=== PATIENT | female | born 1975 | race Caucasian/White ===

== ENCOUNTER 2021-04-11 17:25 | Observation (INO) ==
[2021-04-11] MEDS ORDERED: ONDANSETRON 4 MG/2 ML VIAL IV STA (18:21)
[2021-04-11] MEDS ORDERED: ASPIRIN 325 MG TABLET PO STA (18:21)
[2021-04-11 18:29] LABS: Basophils # 0.1 10*3/uL (0.0-0.2); Basophils % 1.6 % (0.0-0.8); Eosinophils # 0.1 10*3/uL (0.0-0.87); Hematocrit 39.7 VOL% (35.7-47.0); Hemoglobin 12.8 GM/DL (12.0-16.0); Immature Granulocytes % 0.5 %; Immature Granulocytes Absolute 0.03 #; Lymphocytes # 1.5 10*3/uL (1.4-4.0); Lymphocytes % 22.5 % (21.3-54.2); Mean Corpuscular HGB Conc 32.2 GM/DL (32-36); Mean Corpuscular Volume 95.7 FL (87-102); Mean Platelet Volume 10.5 FL (9.6-12.0); Monocytes % 9.3 % (1.7-12.7); Neutrophils % 64.1 % (38.7-73.9); Platelet Count 275 T/CUMM (130-400); Red Blood Count 4.15 MC/CUMM (3.8-5.5); White Blood Count 6.5 T/CUMM (4-12)
[2021-04-11 19:24] LABS: Alanine Aminotransferase 40 U/L (13-56); Albumin 3.5 G/DL (3.4-5.0); Alkaline Phosphatase 77 U/L (45-117); Aspartate Amino Transferase 28 U/L (0-37); Bilirubin,Total < 0.39 MG/DL (0.2-1.0); Blood Urea Nitrogen 16 MG/DL (7-18); Calcium 8.5 MG/DL (8.5-10.1); Carbon Dioxide 22 MMOL/L (21-32); Estimated Glom Filtration Rate 96 ML/MIN; Glucose 68 MG/DL (74-106); Osmolality,Calculated 275.5 MOS/KG (273-304); Potassium 4.2 MMOL/L (3.5-5.1); Sodium 139 MMOL/L (136-145); Total Protein 6.9 G/DL (6.4-8.2)
[2021-04-11] MEDS ORDERED: KETOROLAC 30 MG/1 ML VIAL IV STA (19:55)
[2021-04-11] MEDS ORDERED: KETOROLAC 30 MG/1 ML VIAL ONE (19:56)
[2021-04-11] MEDS ORDERED: ONDANSETRON 4 MG/2 ML VIAL IV PRN (22:08)
[2021-04-11] MEDS ORDERED: GLUCAGON 1 MG VIAL IM PRN (22:08)
[2021-04-11] MEDS ORDERED: DEXTROSE 50% 25 GM/50 ML VIAL IV PRN (22:08)
[2021-04-11] MEDS ORDERED: SODIUM CHLORIDE 0.9% 1,000 ML IV SCH (22:30)
[2021-04-11 23:44] LABS: INR 0.9; PT Patient Result 10.7 SECS (10.5-12.0)
[2021-04-12] MEDS: MORPHINE 4 MG/1 ML VIAL IV PRN ×3 (01:39→21:06)
[2021-04-12 03:58] LABS: Basophils # 0.1 10*3/uL (0.0-0.2); Basophils % 1.7 % (0.0-0.8); Eosinophils # 0.1 10*3/uL (0.0-0.87); Eosinophils % 2.8 % (0.00-10.9); Hematocrit 39.2 VOL% (35.7-47.0); Hemoglobin 13.2 GM/DL (12.0-16.0); Immature Granulocytes % 0.8 %; Immature Granulocytes Absolute 0.03 #; Lymphocytes # 1.5 10*3/uL (1.4-4.0); Lymphocytes % 43.2 % (21.3-54.2); Mean Corpuscular HGB Conc 33.7 GM/DL (32-36); Mean Corpuscular Volume 94.7 FL (87-102); Mean Platelet Volume 10.3 FL (9.6-12.0); Monocytes % 9.9 % (1.7-12.7); Neutrophils % 41.6 % (38.7-73.9); Platelet Count 153 T/CUMM (130-400); Red Blood Count 4.14 MC/CUMM (3.8-5.5); White Blood Count 3.5 T/CUMM (4-12)
[2021-04-12 03:59] LABS: Bilirubin,Urine Negative (Negative); Blood, Urine Negative (Negative); Glucose,Urine (UA) Negative (Negative); Hyaline Casts,Urine 1 /LPF (0-3); Ketones,Urine Negative (Negative); Mucus,Urine Occasional /LPF (Occasional); Nitrite,Urine Negative (Negative); Protein,Urine Negative; RBC,Urine 1 /HPF (0-4); Squamous Epithelial Cell,Urine Occasional /HPF (0-10); Urine Appearance CLEAR (Clear); Urine Color Yellow (Yellow)
[2021-04-12] MEDS: APIXABAN 5 MG TABLET PO SCH ×3 (04:04→20:59)
[2021-04-12 04:30] LABS: Calcium 6.7 MG/DL (8.5-10.1); Osmolality,Calculated 279.1 MOS/KG (273-304); Potassium 3.4 MMOL/L (3.5-5.1); Risk Ratio 2.61; VLDL CHOLESTEROL 14.8 MG/DL
[2021-04-12 05:31] LABS: Hypochromasia Slight
[2021-04-12 05:32] LABS: Platelet Estimate Adequate
[2021-04-12] MEDS ORDERED: POTASSIUM CHLORIDE 20 MEQ TABLET PO ONE (09:05)
[2021-04-12] MEDS: PANTOPRAZOLE 40 MG TABLET PO SCH (10:50)
[2021-04-12] MEDS: PARoxetine 20 MG TABLET PO SCH (10:50)
[2021-04-12] MEDS: METOPROLOL TARTRATE 25 MG TABLET PO SCH ×2 (11:12→20:59)
[2021-04-12] MEDS ORDERED: POTASSIUM CHLORIDE 20 MEQ TABLET PO PRN (13:23)
[2021-04-12] MEDS ORDERED: ACETAMINOPHEN 325 MG TABLET PO PRN (18:15)
[2021-04-12] MEDS ORDERED: QUEtiapine 100 MG TABLET PO SCH (21:00)
[2021-04-12] MEDS ORDERED: traZODone 50 MG TABLET PO SCH (21:00)
[2021-04-12] MEDS ORDERED: SIMVASTATIN 20 MG TABLET PO SCH (21:00)
[2021-04-13 05:01] LABS: Basophils # 0.1 10*3/uL (0.0-0.2); Basophils % 1.6 % (0.0-0.8); Eosinophils # 0.1 10*3/uL (0.0-0.87); Eosinophils % 3.1 % (0.00-10.9); Hematocrit 39.1 VOL% (35.7-47.0); Hemoglobin 12.7 GM/DL (12.0-16.0); Immature Granulocytes % 0.3 %; Immature Granulocytes Absolute 0.01 #; Lymphocytes # 1.5 10*3/uL (1.4-4.0); Lymphocytes % 39.5 % (21.3-54.2); Mean Corpuscular HGB Conc 32.5 GM/DL (32-36); Mean Corpuscular Volume 96.5 FL (87-102); Mean Platelet Volume 10.2 FL (9.6-12.0); Monocytes % 9.7 % (1.7-12.7); Neutrophils % 45.8 % (38.7-73.9); Platelet Count 221 T/CUMM (130-400); Red Blood Count 4.05 MC/CUMM (3.8-5.5); White Blood Count 3.8 T/CUMM (4-12)
[2021-04-13 05:25] LABS: Calcium 8.6 MG/DL (8.5-10.1); Osmolality,Calculated 280.1 MOS/KG (273-304); Potassium 4.2 MMOL/L (3.5-5.1)
[2021-04-13] MEDS: MORPHINE 4 MG/1 ML VIAL IV PRN ×2 (06:28→10:39)
[2021-04-13] MEDS: METOPROLOL TARTRATE 25 MG TABLET PO SCH (08:48)
[2021-04-13] MEDS: APIXABAN 5 MG TABLET PO SCH (08:48)
[2021-04-13] MEDS: PANTOPRAZOLE 40 MG TABLET PO SCH (08:48)
[2021-04-13] MEDS: PARoxetine 20 MG TABLET PO SCH (08:48)
[2021-04-13 12:18] VITALS: BP 108/65
== END 2021-04-13 13:50 | disposition home or self-care (01) ==
LOC: N.ED 17:25 → N.EDINP 17:25 → SUATTDRO 22:08 → N.EDINP 04-12 12:41 → N.TELES 04-12 14:38
PROVIDERS: ADMIT Internal Medicine; ATTEND Internal Medicine